=== PATIENT | male | born 1980 | race Caucasian/White ===

== ENCOUNTER 2016-08-23 23:49 | Emergency (ER) | payer MEDICARE ==
[~2016-08-23 23:49] MED LIST: GLIP5TAB10 PO; LISI-338 PO; METF10002 PO; QUET200T4 PO
[2016-08-23 23:52] VITALS: BP 128/58
--- NOTE | 2016-08-24 00:18 | PHYS DOC ---
Past Medical History Past Medical History: Diabetes-Type II, Schizophrenia Additional Past Medical Histor: former alcholic Past Surgical History: No Surgical History Smokin Pack Per Day Alcohol Use: None Drug Use: None Adult General Chief Complaint Chief Complaint: DIFFICULTY SWALLOWING [facility] HPI Patient is a 35 year old male who presents with difficulty swallowing starting this evening. He reports that he ate dinner without difficulty and took his nighttime pills without difficulty as well. He denies pain in the throat, fever , or cough. He is able to tolerate oral secretions without any trouble. He denies a foreign body sensation or globus. He takes multiple psychiatric medications that cause dry mouth. He denies any change in medications. He has a history of diabetes but does not use any steroid inhalers. His PCP is Dr. Matthew Crisostomo. Review of Systems Review of Systems Constitutional: Denies fever or chills [] Eyes: Denies change in visual acuity, redness, or eye pain [] HENT: Denies nasal congestion or sore throat. Reports difficulty swallowing. Respiratory: Denies cough. Reports mild shortness of breath. Cardiovascular: No additional information not addressed in HPI [] GI: Denies abdominal pain, nausea, vomiting, bloody stools or diarrhea [] Musculoskeletal: Denies back pain or joint pain [] Integument: Denies rash or skin lesions [] Neurologic: Denies headache, focal weakness or sensory changes [] Allergies Allergies Allergies Coded Allergies Type Severity Reaction Last Updated Verified lorazepam Allergy Severe "FLIPPING OUT" 09/06/13 Yes Physical Exam Physical Exam Constitutional: Well developed, well nourished, no acute distress, non-toxic appearance. [] HENT: Normocephalic, atraumatic, bilateral external ears normal, oropharynx moist, no oral exudates, nose normal. Bilateral TMs without erythema or bulging. There is posterior pharyngeal erythema without significant tonsillar edema. There are no exudates, but there is a whitish film on the uvula and tonsils. He is able to swallow oral secretions and drink water without difficulty. Eyes: PERRLA, EOMI, conjunctiva normal, no discharge. [] Neck: Normal range of motion, no tenderness, supple, no stridor. [] Cardiovascular: Heart rate regular rhythm, no murmur [] Lungs & Thorax: Bilateral breath sounds clear to auscultation without wheezes, rales, or rhonchi. No respiratory distress or increased effort with breathing. Skin: Warm, dry, no erythema, no rash. [] Neurologic: Alert and oriented X 3, normal motor function, normal sensory function, no focal deficits noted. [] Psychologic: Affect normal, judgement normal, mood normal. [] Current Patient Data Vital Signs Vital Signs Date Time Temp Pulse Resp B/P Pulse Ox O2 Delivery O2 Flow Rate FiO2 08/23/16 23:52 97.3 103 18 97 Room Air 97.3 Lab Values Rapid strep negative EKG EKG [] Radiology/Procedures Radiology/Procedures [] Course & Med Decision Making Course & Med Decision Making Pertinent Labs and Imaging studies reviewed. (See chart for details) The patient presents with report of difficulty swallowing starting this evening. He denies sore throat, cough, fever. He does have mild difficulty breathing. On exam, the airway is grossly patent with posterior pharyngeal erythema with a white film consistent with thrush. He is able to tolerate oral secretions and drink water in the emergency department without difficulty. Rapid strep was negative. Patient is diabetic and takes psychiatric medications that cause dry mouth. This combination makes him more susceptible to thrush. He states that the feeling of dysphagia has improved while in the emergency department without intervention. He is discharged with prescription for nystatin oral solution. Return precautions were discussed. He verbalizes understanding and agrees with plan. Dragon Disclaimer Dragon Disclaimer This electronic medical record was generated, in whole or in part, using a voice recognition dictation system. Departure Departure Impression: Primary Impression: Thrush of mouth and esophagus Additional Impression: Dysphagia Disposition: 01 HOME, SELF-CARE Condition: IMPROVED Referrals: MATTHEW CRISOSTOMO MD (PCP) Patient Instructions: Dysphagia, Thrush, Adult, [id number] Scripts Nystatin 100,000 Unit/1 Ml Oral.susp5 Ml PO QID 7 Days Swish, gargle, and either spit out or swallow. Prov:OLI SUÁREZ 08/24/16 Problem Qualifiers Additional Impression: Dysphagia Dysphagia type: unspecified Qualified Code: R13.10 - Dysphagia, unspecified OLI SUÁREZ Aug 24, 2016 00:18
[2016-08-24] MEDS ORDERED: NYST1000 PO (01:01)
[2016-08-24 09:47] LABS: NEGATIVE OBC STREP NEG; POSITIVE OBC STREP POS
== END 2016-08-24 01:05 | disposition home or self-care (01) ==
LOC: ER 23:49
DX: B37.0 Candidal stomatitis (principal); B37.81 Candidal esophagitis; R13.10 Dysphagia, unspecified; E11.9 Type 2 diabetes mellitus without complications; F20.9 Schizophrenia, unspecified; F17.200 Nicotine dependence, unspecified, uncomplicated; Z88.8 Allergy status to other drugs, medicaments and biological substances
CPT/HCPCS: 87070; 87880; 99283

== ENCOUNTER → 2016-10-17 | Outpatient (CLI) | payer MEDICARE ==
[~2016-10-17] MED LIST changes: +METF-620 PO; -METF10002 PO; +NYST100054 PO
== END | disposition home or self-care (01) ==
LOC: LAB 11:40
PROVIDERS: ATTEND Internal Medicine Endocrinology, Diabetes & Metabolism
DX: E11.9 Type 2 diabetes mellitus without complications (principal)
CPT/HCPCS: 36415; 83036

== ENCOUNTER → 2017-10-22 | Outpatient (CLI) | payer MEDICARE ==
[2017-10-22 11:25] LABS: ALBUMIN 4.3 g/dL (3.4-5.0); ALK PHOS 77 U/L (46-116); ALT (SGPT) 30 U/L (16-63); ANION GAP 10 (6-14); AST (SGOT) 17 U/L (15-37); BLOOD UREA NITROGEN 10 mg/dL (8-26); BUN/CREATININE RATIO 9 (6-20); CALCIUM 9.5 mg/dL (8.5-10.1); CARBON DIOXIDE 26 mmol/L (21-32); CHLORIDE 104 mmol/L (98-107); CHOLESTEROL 111 mg/dL (0-200); CREATININE 1.1 mg/dL (0.7-1.3); GFR 74.9; GLUCOSE 152 mg/dL (70-99); HDLC 36 mg/dL (40-60); LDLC 56 mg/dL (0-100); NON-HDL CHOLESTEROL 75 mg/dL (0-129); POTASSIUM 4.1 mmol/L (3.5-5.1); SODIUM 140 mmol/L (136-145); TOTAL BILIRUBIN 0.4 mg/dL (0.2-1.0); TOTAL PROTEIN 8.4 g/dL (6.4-8.2); TRIGLYCERIDES 95 mg/dL (0-150); VLDLC 19 mg/dL (0-40)
[2017-10-22 11:26] LABS: CHOLESTEROL/HDL RATIO 3.1
[2017-10-23 03:14] LABS: HEMOGLOBIN A1C 5.9 % (4.8-5.6)
[2017-10-23 12:20] LABS: CREAT RD UR 48.8 mg/dL (Not Estab.); MICRO CREAT RATIO <6.1 mg/g creat (0.0-30.0); MICROALB RD UR <3.0 ug/mL (Not Estab.)
== END | disposition home or self-care (01) ==
LOC: LAB 10:39
DX: E11.9 Type 2 diabetes mellitus without complications (principal)
CPT/HCPCS: 36415; 80053; 80061; 82043; 82570; 83036

== ENCOUNTER → 2018-10-21 | Outpatient (CLI) | payer MEDICARE ==
[~2018-10-21] MED LIST changes: -METF-620 PO; +METF10007 PO
[2018-10-21 13:56] LABS: ALBUMIN 4.3 g/dL (3.4-5.0); ALBUMIN/GLOBULIN RATIO 1.2 (1.0-1.7); CALCIUM 9.5 mg/dL (8.5-10.1); GFR 83.2; TOTAL BILIRUBIN 0.4 mg/dL (0.2-1.0); TOTAL PROTEIN 7.9 g/dL (6.4-8.2)
[2018-10-22 00:08] LABS: CREAT RD UR 45.1 mg/dL (Not Estab.); MICRO CREAT RATIO 7.3 mg/g creat (0.0-30.0); MICROALB RD UR 3.3 ug/mL (Not Estab.)
[2018-10-22 12:12] LABS: HEMOGLOBIN A1C 6.6 % (4.8-5.6)
== END | disposition home or self-care (01) ==
LOC: LAB 13:14
PROVIDERS: ATTEND Internal Medicine Endocrinology, Diabetes & Metabolism
DX: E11.9 Type 2 diabetes mellitus without complications (principal)
CPT/HCPCS: 36415; 80053; 80061; 82043; 82570; 83036; 84443

== ENCOUNTER → 2019-10-29 | Outpatient (CLI) | payer MEDICARE ==
[2019-10-29 13:00] LABS: ALBUMIN 4.2 g/dL (3.4-5.0); ALBUMIN/GLOBULIN RATIO 1.1 (1.0-1.7); CALCIUM 9.1 mg/dL (8.5-10.1); GFR 82.8; POTASSIUM 4.7 mmol/L (3.5-5.1); TOTAL BILIRUBIN 0.5 mg/dL (0.2-1.0); TOTAL PROTEIN 7.9 g/dL (6.4-8.2)
[2019-10-29 13:07] LABS: CHOLESTEROL/HDL RATIO 2.8
[2019-10-30 00:07] LABS: HEMOGLOBIN A1C 6.7 % (4.8-5.6)
[2019-10-30 03:08] LABS: CREAT RD UR 29.4 mg/dL (Not Estab.); MICRO CREAT RATIO <10 mg/g creat (0-29); MICROALB RD UR <3.0 ug/mL (Not Estab.)
== END | disposition home or self-care (01) ==
LOC: LAB 12:18
PROVIDERS: ATTEND Internal Medicine Endocrinology, Diabetes & Metabolism
DX: E11.9 Type 2 diabetes mellitus without complications (principal)
CPT/HCPCS: 36415; 80053; 80061; 82043; 82570; 83036